=== PATIENT | female | born 1990 | race Caucasian/White ===

== ENCOUNTER 2024-04-23 08:32 | Emergency (ER) | payer OTHER, SELFPAY ==
[2024-04-23 08:35] VITALS: BP 125/78; PULSE 97; RESP 16; TEMP 36.7; O2SAT 99
--- NOTE | 2024-04-23 09:06 | ED.URI ---
HPI - URI/Sore Throat General Chief Complaint: Upper Respiratory Infection Stated Complaint: Cough/Chest Congestion Time Seen by Provider: 04/23/24 09:00 Source: patient, RN notes reviewed and old records reviewed Mode of arrival: ambulatory Limitations: no limitations History of Present Illness HPI Narrative: 33 year old female who presents to express care with complaints of cough and congestion since Sunday with lungs feeling heavy and having some wheezing noted at night. Patient reports that she does have a history of asthma present inhaler is doesn't normally have to use inhaler very frequently. Patient reports that she has not had a fever and doesn't have any body aches. Patient reports that she does have some irritated throat from coughing. Patient reports that she has been taking Mucinex D, Tylenol and Ibuprofen for her symptoms. MD elicited complaint: cough and sore throat Pertinent past history: asthma Onset (ago): day(s) (3) Severity: moderate Able to tolerate fluids by mouth: Yes Treatments prior to arrival: acetaminophen, ibuprofen and other (Mucinex D) Related Data Allergies Allergy/AdvReac Type Severity Reaction Status Date / Time No Known Allergies Allergy Unknown Unverified 04/23/24 08:57 Review of Systems Review of Systems: CONSTITUTIONAL: Reports some malaise, no chills, sweats, or known fever. EYES: Denies visual changes, redness, or discharge. ENT: Reports rhinorrhea, congestion, sinus pain,no otalgia and positive for scratchy sore throat. CARDIOVASCULAR: Denies chest pain, palpitations, or edema. RESPIRATORY: Reports cough.? Denies dyspnea, states lungs feel heavy GASTROINTESTINAL: Denies abdominal pain, nausea, vomiting, diarrhea SKIN: Denies rash or itching. MUSCULOSKELETAL: Denies myalgia. NEUROLOGIC: Denies headache. All systems reviewed & are unremarkable except as noted in HPI and below PMFSH Past Medical History Medical History (Updated 04/23/24 @ 09:32 by Lillian Garcia NP) Bronchitis Sinusitis Asthma Pneumonia post COVID was hospitalized for 9 days 2020 Surgical History Surgical History (Updated 04/23/24 @ 09:28 by Lillian Garcia NP) [place] teeth extracted Social History Social History (Updated 04/23/24 @ 09:29 by Lillian Garcia NP) Smoking status: Never smoker Alcohol intake: current Alcohol use details: social Substance use type: does not use Gender identity (if verbalized by the patient): Female Comments At time of signature, agree with nursing past medical, surgical, social and family history. There is no relevant family history pertinent to the presenting complaint Exam Narrative: GENERAL: Well-appearing, well-nourished, and in no acute distress. HEAD: Normocephalic EYES: PERRLA, conjunctivae clear ENT: Nares clear, turbinates edematous and erythematous, clear discharge. Mucous membranes moist. TM pearly newell with dull light reflex bilaterally; no tragal tenderness. Oropharynx erythematous without lesions. Tonsils not enlarged and without exudate, no drooling, no hoarseness, no trismus, uvula midline.post nasal drainage. NECK: Supple. No lymphadenopathy CHEST: Clear to auscultation, breath sounds equal. No wheezing, rhonchi, rales, or stridor. No respiratory distress, speaks in full sentences.cough noted SAO2 99% on room air HEART: Regular rate and rhythm. No murmur heard. SKIN: Warm, dry, no rash. NEURO: Alert and oriented x3. PSYCH: Normal mood and affect Course Course Emergency Course: Patient is aware of diagnosis, understands and agrees to treatment plan.? Anticipatory guidance given.? Patient agrees to follow-up as directed and is aware of reasons to seek care at the emergency department. Portions of this record may have been created with voice recognition software Level of Care: Express Care Visit Vital Signs Vital signs: Vital Signs Temperature 36.7 C 04/23/24 08:35 Pulse Rate 97 04/23/24 08:35 Respiratory Rate 16 04/23/24 08:35 Blood Pressure 125/78 04/23/24 08:35 Pulse Oximetry 99 04/23/24 08:35 Oxygen Delivery Room Air 04/23/24 08:35 Temperature 36.7 C 04/23/24 08:35 Pulse Rate 97 04/23/24 08:35 Respiratory Rate 16 04/23/24 08:35 Blood Pressure 125/78 04/23/24 08:35 Pulse Oximetry 99 04/23/24 08:35 Oxygen Delivery Room Air 04/23/24 08:35 Reviewed MDM - URI/Sore Throat MDM Narrative Medical decision making narrative: Differential diagnosis considered: Shahid virus, strep pharyngitis, allergic rhinitis, upper respiratory tract infection, sinusitis, rhinosinusitis, nasopharyngitis. viral pharyngitis, otitis media, otitis externa, pneumonia, bronchitis, viral cough syndrome, viral syndrome, and influenza.? Exam findings show no acute concerns or changes; patient is non-toxic appearing and is in no distress.? Patient is appropriate for outpatient treatment and follow-up. Differential Diagnosis Differential diagnosis: Likely upper respiratory infection, sinusitis, viral infection, bronchitis, influenza and other (COVID, acute cough) Medical Records Attestation: I reviewed the patient's medical records. Lab Data Attestation: I reviewed the patient's lab results. Lab results narrative: Influenza A positive, Influenza B negative, COVID antigen negative Critical Care Time Critical Care Time Critical Care Time: No Discharge Plan Discharge Clinical Impression: Influenza A, Acute cough Patient Disposition: Home, Self-Care Condition: Stable Instructions: Influenza (ED) Additional Instructions: Increase fluids especially juices and water [id number]-[id number] cough and cold medicine of your choice for your symptoms Zyrtec Claritin or Kassandra daily Tylenol or ibuprofen for any fever pain Continue your inhaler/nebulizer as directed Steroids as directed--take with food heat to the face 20-30 minutes 4-6 times a day for pain Salt water gargles, throat lozenges or throat sprays as desired Monitor for temp every 4 hours You are to quarantine until you have been fever free for 24 hours without use of Tylenol or ibuprofen in you can return to work, do recommend wearing a mask when 1st around others Patient Language: Austrian Prescriptions: New albuterol sulfate [Ventolin HFA] 90 mcg/actuation HFA aerosol inhaler 2 puff inhalation QID PRN (Reason: shortness of breath or wheezing) Qty: 6.7 0RF Rx Instructions: what ever brand of Albuterol that is covered by her insurance prednisone 20 mg tablet 20 mg PO BID Qty: 10 0RF Rx Instructions: take with food, evening dose before 6 pm Follow-up/Referrals: PHYSICIAN,BULLET LUBRICATING MACHINE OPERATOR [Primary Care Provider] - Stand Alone Forms: Work/School Release IP Time of Disposition: 09:18 [place] Coma Scale Eyes: Open Verbal: Oriented and Alert Motor: Follows Commands Robert Coma Total Score: 15
[2024-04-23 09:12] LABS: EDCOVIDSCREEN Negative (Negative); EDINFLUASCREEN Positive (Negative); EDINFLUBSCREEN Negative (Negative)
== END 2024-04-23 09:24 | disposition home or self-care (01) ==
PROVIDERS: Emergency Provider Registered Nurse
DX: J10.1 Influenza due to other identified influenza virus with other respiratory manifestations (principal); J45.909 Unspecified asthma, uncomplicated; Z20.822 Contact with and (suspected) exposure to COVID-19
CPT/HCPCS: 87426; 87804; 99203; G0463

== ENCOUNTER 2024-11-22 08:46 | Emergency (ER) | payer OTHER, SELFPAY ==
--- NOTE | ~2024-11-22 | XR_ITS ---
EXAMINATION: XR chest 2V, 11/22/2024 9:30 CDT HISTORY: cough x5 days, +asthma. crackes throughout COMPARISON: No comparisons available. Technique: 2 views obtained. Findings: The lungs are clear, no effusion. No pneumothorax. Heart is normal size. Mediastinal and hilar contours are within normal limits. Bony thorax no acute abnormality. Impression: No acute cardiopulmonary abnormality. Reviewed, dictated and finalized at location A. Impression: No acute cardiopulmonary abnormality.
[2024-11-22 08:51] VITALS: BP 131/73; PULSE 80; RESP 18; TEMP 36.4; O2SAT 98
--- NOTE | 2024-11-22 09:31 | ED.URI ---
HPI - URI/Sore Throat General Chief Complaint: Upper Respiratory Infection Stated Complaint: croupy cough Time Seen by Provider: 11/22/24 09:20 Source: patient and RN notes reviewed Mode of arrival: ambulatory Limitations: no limitations History of Present Illness HPI Narrative: Patient presents today with a 5 day history of productive cough and intermittent mild shortness of breath. Denies fever, sore throat, nasal congestion. She has tried Mucinex and Tessalon Perles with mild relief. History of asthma. She does have a rescue inhaler but ran out yesterday. Related Data Home Medications ?Medication ?Instructions ?Recorded ?Confirmed ?Last Taken ?Type albuterol sulfate 90 mcg/actuation inhalation 11/22/24 Unknown History aerosol inhaler medroxyprogesterone 10 mg tablet mg 11/22/24 Unknown History Allergies Allergy/AdvReac Type Severity Reaction Status Date / Time No Known Allergies Allergy Unknown Verified 11/22/24 09:12 [facility] Past Medical History Medical History Bronchitis Sinusitis Asthma Pneumonia post COVID was hospitalized for 9 days 2020 Surgical History Surgical History [place] teeth extracted Family History Family History Mother Hypertension Father Hypertension Social History Social History Smoking status: Never smoker Alcohol intake: never Substance use: never Substance use type: does not use Do You Feel Safe in your Home?: Yes Lack of Transportation: No Lack of Food: Never True Current Housing: I Have Housing Concerned About Future Housing: No Difficulty Paying Gas/Electric Bills: No Difficulty Paying for Meds: No Currently Unemployed: No Education: Associate Degree Difficulty w/ Childcare or Family Care: No Living arrangements: with family Occupation/Education: occupation Additional occupation/education comments: dental office Gender identity (if verbalized by the patient): Female Sexual Orientation (if Verbalized by the Patient): Lesbian, Shaw, or Homosexual Comments At time of signature, I have reviewed and agree with nursing past medical, surgical, social and family history unless otherwise noted. Please see nursing chart for further information. There is no relevant family history pertinent to the presenting complaint Exam Narrative: GENERAL: Mildly ill-appearing, well-nourished, and in no acute distress. HEAD: Normocephalic, atraumatic. EYES: EOMI. No redness or drainage. Conjunctivae normal. ENT: Mucous membranes pink and moist. Nares clear. No rhinorrhea. TMs normal bilaterally. Throat normal. Uvula midline. NECK: Normal AROM. Supple. No lymphadenopathy. CHEST: No respiratory distress. Mild crackling throughout. HEART: Regular rate and rhythm. No murmur appreciated. EXTREMITIES: Normal range of motion. No edema. SKIN: Warm, dry, no rash. Capillary refill normal. Normal skin turgor. NEURO: No focal deficits. Alert and oriented x3. Gait steady. PSYCH: Normal affect. No signs of depression or anxiety. Course Course Level of Care: Express Care Visit Vital Signs Vital signs: Vital Signs Temperature 97.5 F L 11/22/24 08:51 Pulse Rate 80 11/22/24 08:51 Respiratory Rate 18 11/22/24 08:51 Blood Pressure 131/73 11/22/24 08:51 Pulse Oximetry 98 11/22/24 08:51 Oxygen Delivery Room Air 11/22/24 08:51 Temperature 97.5 F L 11/22/24 08:51 Pulse Rate 80 11/22/24 08:51 Respiratory Rate 18 11/22/24 08:51 Blood Pressure 131/73 11/22/24 08:51 Pulse Oximetry 98 11/22/24 08:51 Oxygen Delivery Room Air 11/22/24 08:51 Reviewed MDM - URI/Sore Throat MDM Narrative Medical decision making narrative: 34-year-old female patient presents today with a 5 day history of productive cough and mild shortness of breath. History of asthma. Denies any fever, sore throat, nasal congestion. She has tried Mucinex and Tessalon Perles with mild improvement. She has run out of her albuterol inhaler. Exam shows crackling throughout upon auscultation and harsh cough. Chest x-ray is negative. Patient received DuoNeb and most of the crackles improved after the treatment in patient states she is feeling better. Patient's viral illness and asthma exacerbation will be treated with Tessalon Perles, albuterol and prednisone. Patient agrees with plan. Anticipatory guidance given. Vital signs stable. Differential Diagnosis Differential diagnosis: Likely viral infection, bronchitis and other (Pneumonia, asthma exacerbation) Imaging Data Radiologist's impression: ITS Impressions Chest X-Ray 11/22/24 10:09 Impression: No acute cardiopulmonary abnormality. Critical Care Time Critical Care Time Critical Care Time: No Discharge Plan Discharge Clinical Impression: Acute lower respiratory infection Asthma exacerbation Qualifiers: Asthma severity: unspecified severity Asthma persistence: unspecified Qualified Code(s): J45.901 - Unspecified asthma with (acute) exacerbation Patient Disposition: Home Condition: Stable Instructions: Acute Bronchitis (ED) Additional Instructions: Your chest x-ray is negative for pneumonia. Your symptoms are likely due to a viral illness, which is not treated with antibiotics. Virus symptoms can last for up to 7-10days. Take Tylenol or ibuprofen for pain or fever. Use your albuterol inhaler or nebulizer treatments for wheezing or shortness of breath. In the Tessalon Perles for cough if needed. Rest and stay hydrated. Follow up with your PCP in 5-7 days if symptoms are not improving. Go to the ER immediately if you develop shortness of breath, difficulty swallowing, or any other concerning symptoms. Your blood pressure was elevated above 120/80 today at Urgent Care. This puts you above the threshold for follow up. Please schedule a followup visit with your personal physician as soon as possible, for further evaluation and treatment. Even blood pressure exceeding 120/80 may indicate pre-hypertension. Patient Language: German Prescriptions: New benzonatate 200 mg capsule 200 mg PO TID PRN (Reason: cough) Qty: 20 0RF albuterol sulfate 90 mcg/actuation HFA aerosol inhaler 2 inh inhalation Q4-6H PRN (Reason: shortness of breath or wheezing) Qty: 8.5 0RF (DME) BreatheRite MDI Spacer Spacer See Rx Instructions .ROUTE .MEDSUPPLY Qty: 1 0RF Rx Instructions: As directed albuterol sulfate 2.5 mg /3 mL (0.083 %) solution for nebulization 2.5 mg inhalation Q4-6H PRN (Reason: shortness of breath or wheezing) Qty: 90 0RF No Action medroxyprogesterone 10 mg tablet albuterol sulfate 90 mcg/actuation HFA aerosol inhaler INHALATION Follow-up/Referrals: PHYSICIAN,ACCOUNT REPRESENTATIVE [Primary Care Provider, Internal Medicine] Time of Disposition: 10:24
[2024-11-22] MEDS: IPRATROPIUM BR 0.02% INH SOLN 0.5 MG/2.5 ML VIAL INHALATION (09:46)
[2024-11-22] MEDS: ALBUTEROL SULFATE NEB 2.5 MG/3 ML INH INHALATION (09:47)
== END 2024-11-22 10:25 | disposition home or self-care (01) ==
PROVIDERS: Emergency Provider Nurse Practitioner
DX: J22 Unspecified acute lower respiratory infection (principal); J45.901 Unspecified asthma with (acute) exacerbation
CPT/HCPCS: 71046; 94640; 99213; G0463